=== PATIENT | male | born 1935 | race African-American/Black ===

== ENCOUNTER 2020-06-29 11:06 | Emergency (ER) | payer OTHER, MEDICARE ==
[~2020-06-29] VITALS: Ht 177.8 cm; Wt 78.0 kg
[2020-06-29] MEDS ORDERED: MORPHINE SULFATE 4 MG/ML CPJ (NOT FOR IM USE) IV STA (11:47)
[2020-06-29 12:02] LABS: BASOPHILS % 0.3 % (0.0-2.0); EOSINOPHILS % 0.7 % (0.0-5.0); HEMATOCRIT. 31.2 % (42.0-52.0); HEMOGLOBIN. 10.2 g/dL (14.0-18.0); LYMPHOCYTES % 13.3 % (20.0-50.0); MEAN CORPUSCULAR HEMOGLOBIN 23.2 pg (28.0-32.0); MEAN CORPUSCULAR VOLUME 70.8 fL (80.0-94.0); MEAN PLATELET VOLUME 7.5 fl (7.4-10.4); MONOCYTES % 10.7 % (2.0-8.0); PLATELET 247 x1000/uL (130-400); RED CELL DISTRIBUTION WIDTH 15.1 % (11.6-14.6)
[2020-06-29 12:09] LABS: CHLORIDE 102 mEq/L (98-107)
[2020-06-29] MEDS ORDERED: METH-773 MT (14:36)
[2020-06-29] MEDS ORDERED: IBUP-2028 MT (14:36)
[2020-06-29 16:00] VITALS: BP 127/75
[2020-06-29] MEDS ORDERED: IBUPROFEN 600MG TABLET PO ONE (16:15)
== END 2020-06-29 15:57 | disposition home or self-care (01) ==
LOC: ER 11:52
DX: S29.012A Strain of muscle and tendon of back wall of thorax, initial encounter (principal); S40.012A Contusion of left shoulder, initial encounter; R41.0 Disorientation, unspecified; M54.2 Cervicalgia; Z79.899 Other long term (current) drug therapy; Z98.890 Other specified postprocedural states; Z87.891 Personal history of nicotine dependence; V49.88XA Car occupant (driver) (passenger) injured in other specified transport accidents, initial encounter; Y93.89 Activity, other specified; Y92.89 Other specified places as the place of occurrence of the external cause; Y99.8 Other external cause status
CPT/HCPCS: 36415; 70450; 71045; 72125; 72128; 80053; 84484; 85025; 96374; 99285; J2270; Z7610